=== PATIENT | female | born 1995 | race Caucasian/White ===

== ENCOUNTER → 2020-03-14 | Outpatient (REF) | payer OTHER ==
[2020-04-24 13:51] LABS: CHLAMYDIA DNA AMPLIFICATION POSITIVE (NEGATIVE); GC DNA AMPLIFICATION NEGATIVE (NEGATIVE)
[2020-04-28 10:31] LABS: GLUCOSE CHALLENGE TEST 1 HOUR 138 MG/DL (LESS THAN 140); HEPATITIS C VIRUS ABY INDEX 0.2 INDEX (<0.8); HIV 1&2 SCREEN CENTAUR NEGATIVE (NEGATIVE)
[2020-05-06 10:22] LABS: HEMATOCRIT 37.8 % (36.0-47.0); HEMOGLOBIN 12.6 g/dl (12.0-15.5); MEAN CORPUSCULAR HEMOGLOBIN 30.8 pg (27.0-33.0); MEAN CORPUSCULAR HGB CONC 33.3 g/dl (32.0-36.5); MEAN CORPUSCULAR VOLUME 92.4 fl (80.0-96.0); PLATELET COUNT, AUTOMATED 221 10^3/uL (150-450); RED BLOOD COUNT 4.09 10^6/uL (4.00-5.40); WHITE BLOOD COUNT 8.1 10^3/uL (4.0-10.0)
== END ==
LOC: M SFHCWAGY 07:03
PROVIDERS: ATTEND Advanced Practice Midwife
DX: O99.211 Obesity complicating pregnancy, first trimester (principal)

== ENCOUNTER → 2020-03-16 | Outpatient (REF) | payer OTHER | LOC: M SFHCWAGY 08:55 | PROVIDERS: ATTEND Advanced Practice Midwife | DX: Z34.82 Encounter for supervision of other normal pregnancy, second trimester (principal) ==

== ENCOUNTER → 2020-03-20 | Outpatient (CLI) | payer OTHER ==
--- NOTE | 2020-04-30 07:35 | REP ---
STAT FIRST TRIMESTER OBSTETRIC ULTRASOUND: Delay in reporting results from hospital computer system malfunction from malware/ ransomware. HISTORY: Vaginal bleeding. COMPARISON: None available. FINDINGS: There is an intrauterine gestational sac with a pole. The heart rate is 135 beats per minute. There is motion. The pole crown rump length is 65 mm, corresponding to 12 weeks 6 days gestational age. The EDC is 09/26/20. There is a focal mass-like structure in the anterior myometrium, measuring approximately 5.0 cm in diameter. This is likely a myometrial contraction, although fibroid is also possible. No subchorionic hematoma is identified. IMPRESSION: Viable intrauterine gestation as described. Anterior myometrial artifact versus fibroid, as described. Results are telephoned to [facility] and a jiffy STAT report is provided. ADOLFOD
== END ==
LOC: M WHC 17:20
PROVIDERS: ATTEND Obstetrics & Gynecology
DX: O20.0 Threatened abortion (principal)

== ENCOUNTER → 2020-04-24 | Outpatient (CLI) | payer OTHER ==
--- NOTE | 2020-05-04 13:13 | REP ---
COMPLETE OBSTETRICAL ULTRASOUND CLINICAL: Anatomical assessment. FINDINGS: Ultrasound examination demonstrates a single live intrauterine in transverse lie with head to maternal left. Placenta posteriorly and grade 0 without placenta previa or abruption. Amniotic fluid volume is normal. Cervix measures 3.0 cm in length and appears closed. No evidence for nuchal cord. Gestational age by last menstrual period (LMP) 17 weeks 6 days with estimated date of delivery 09/26/2020. Gestational age by current measurements 17 weeks 4 days with estimated date of delivery 09/28/2020. heart rate 140 beats per minute. BIOMETRIC MEASUREMENTS: BPD 3.9 cm 17 weeks 6 days HC 14.6 cm 17 weeks 5 days AC 11.6 cm 17 weeks 2 days FL 2.4 cm 17 weeks 2 days HL 2.4 cm 17 weeks 3 days HC/AC ratio 1.26 Estimated weight 193 grams 36th percentile Anatomical assessment demonstrates normal cranium, ventricles, choroid plexus, cerebellum, posterior fossa, four chamber heart/ventricular outflow tracts, diaphragm, stomach, kidneys, bladder, extremities, and three-vessel cord. Limited evaluation of the facial features and spine due to positioning. IMPRESSION: Single live intrauterine in transverse lie demonstrating appropriate growth. Anatomical limitations as noted above may warrant reevaluation and follow-up. MTDD
== END ==
LOC: M WHC 12:32
PROVIDERS: ATTEND Advanced Practice Midwife
DX: O32.2XX0 Maternal care for transverse and oblique lie, not applicable or unspecified (principal); Z36.89 Encounter for other specified antenatal screening; Z3A.17 17 weeks gestation of pregnancy

== ENCOUNTER → 2020-05-11 | Outpatient (REF) | payer OTHER | LOC: M SFHCWAGY 13:15 | PROVIDERS: ATTEND Advanced Practice Midwife | DX: O99.212 Obesity complicating pregnancy, second trimester (principal) | CPT/HCPCS: 87086; 90471; 90686; G0463 ==

== ENCOUNTER → 2020-05-23 | Outpatient (CLI) | payer OTHER ==
--- NOTE | 2020-05-23 09:58 | REP ---
INDICATION: F/U ANATOMY COMPARISON: 04/24/2020 TECHNIQUE: Transabdominal obstetrical ultrasound with color Doppler evaluation. FINDINGS: Examination demonstrates a single live intrauterine in cephalic presentation. motion is identified by technologist. Placenta is noted posterior and grade 1 without evidence for placenta previa or abruption. Amniotic fluid volume is normal. Cervix measures 4.1 cm in length and appears closed. No evidence for nuchal cord. Gestational age by LMP 22 weeks 0 days with BRENNA 09/26/2020. Gestational age by current measurements 21 weeks 6 days with BRENNA 09/27/2020. FHR equals 149 beats per minute. Estimated weight 446 grams (31stpercentile). Anatomical assessment demonstrates normal structures including cranium, facial features, lungs, four-chamber heart/ventricular outflow tracts, stomach, cord insertion/three-vessel cord, kidneys/bladder, spine. IMPRESSION: Single live intrauterine in cephalic presentation demonstrating appropriate interval growth. In conjunction with prior examination, anatomical assessment is complete and normal. <Electronically signed by Marcin Woodward > 05/23/20 [id number]
== END ==
LOC: M WHC 08:58
PROVIDERS: ATTEND Advanced Practice Midwife
DX: O99.212 Obesity complicating pregnancy, second trimester (principal)

== ENCOUNTER → 2020-06-07 | Outpatient (REF) | payer OTHER | LOC: M SFHCWAGY 13:12 | PROVIDERS: ATTEND Advanced Practice Midwife | DX: O99.212 Obesity complicating pregnancy, second trimester (principal) ==

== ENCOUNTER → 2020-07-24 | Outpatient (CLI) | payer OTHER, MEDICAID | LOC: M LAB 06:58 | PROVIDERS: ATTEND Advanced Practice Midwife | DX: R73.02 Impaired glucose tolerance (oral) (principal) ==

== ENCOUNTER → 2020-08-06 | Outpatient (CLI) | payer SELFPAY | LOC: M LABSMTC 12:45 | PROVIDERS: ATTEND Pediatrics | DX: Z20.828 Contact with and (suspected) exposure to other viral communicable diseases (principal) ==

== ENCOUNTER → 2020-08-11 | Outpatient (CLI) | payer SELFPAY | LOC: M LABSMTC 12:32 | PROVIDERS: ATTEND Pediatrics | DX: Z20.822 Contact with and (suspected) exposure to COVID-19 (principal) ==

== ENCOUNTER → 2020-08-28 | Outpatient (REF) | payer OTHER, MEDICAID | LOC: M PLALAB 14:58 | PROVIDERS: ATTEND Obstetrics & Gynecology | DX: Z34.93 Encounter for supervision of normal pregnancy, unspecified, third trimester (principal); Z3A.36 36 weeks gestation of pregnancy; Z53.9 Procedure and treatment not carried out, unspecified reason ==

== ENCOUNTER → 2020-08-29 | Outpatient (REF) | payer MEDICAID, OTHER ==
[2020-08-31 16:08] LABS: CARDIOLIPIN IGA ANTIBODY <9 APL U/mL (0-11); CARDIOLIPIN IGG ANTIBODY <9 GPL U/mL (0-14); CARDIOLIPIN IGM ANTIBODY <9 MPL U/mL (0-12)
== END ==
LOC: M PLALAB 15:02
PROVIDERS: ATTEND Advanced Practice Midwife
DX: O33.6XX0 Maternal care for disproportion due to hydrocephalic fetus, not applicable or unspecified (principal)

== ENCOUNTER → 2020-08-29 | Outpatient (CLI) | payer MEDICAID, OTHER ==
--- NOTE | 2020-08-29 13:24 | REP ---
INDICATION: CHECK KIDNEYS. Limited study. Check brain. [place] cephalic fetus. COMPARISON: Comparison study 23 May 2021.. TECHNIQUE: Limited transabdominal obstetric sonography. FINDINGS: Scanning through the gravid uterus demonstrates a viable single intrauterine gestation in cephalic lie. motion is observed and heart rate is recorded at 163 beats per minute. A posterior placenta is seen, grade 2, without evidence of placenta previa. Amniotic fluid is subjectively normal. Closed cervical length is measured at 3.7 cm transabdominally. No extrauterine abnormality is observed. Amniotic fluid is subjectively normal. On today's examination there is moderate significant hydrocephalus noted. The lateral and 3rd ventricles are enlarged. The left ventricle is 4.2 cm in the right 2.8 cm.. Biometry chart: BPD 9.1 cm, 37 weeks 0 days Head circumference 34.0 cm, 39 weeks 0 days Abdominal circumference 32.6 cm, 36 weeks 3 days Femur length 6.4 cm, 33 weeks 1 day Humeral length 5.5 cm, 32 weeks 0 days HC AC ratio normal 1.04 Cephalic index normal 0.74 Estimated weight 2813 g, 6 lb 3 oz, 50th percentile for 36 weeks 0 days IMPRESSION: Viable single intrauterine gestation at 35 weeks 4 days by today's composite sonographic criteria. BRENNA by today's sonography September 29, 2020. . There is moderate hydrocephalus. Expected gestational age estimate based on prior sonography is 35 weeks 5 days. BRENNA by prior sonography September 28, 2020. <Electronically signed by Franklin Woods > 08/29/20 [id number]
== END ==
LOC: M WHC 12:15
PROVIDERS: ATTEND Obstetrics & Gynecology
DX: O33.6XX0 Maternal care for disproportion due to hydrocephalic fetus, not applicable or unspecified (principal); Z3A.35 35 weeks gestation of pregnancy

== ENCOUNTER → 2021-06-07 | Outpatient (CLI) | payer OTHER | LOC: M LABSMTC 10:04 | PROVIDERS: ATTEND Pediatrics | DX: Z20.828 Contact with and (suspected) exposure to other viral communicable diseases (principal) | CPT/HCPCS: C9803; U0003 ==